=== PATIENT | female | born 2000 | race Caucasian/White ===

== ENCOUNTER 2025-05-08 08:35 | Outpatient (CLI) | payer OTHER | END 2025-05-08 08:36 | disposition home or self-care (01) | LOC: CSHULT 08:35 | PROVIDERS: ATTEND Internal Medicine Gastroenterology | DX: R10.13 Epigastric pain (principal); K80.20 Calculus of gallbladder without cholecystitis without obstruction; K76.0 Fatty (change of) liver, not elsewhere classified | CPT/HCPCS: 76705 ==